=== PATIENT | male | born 2000 | race African-American/Black ===

== ENCOUNTER 2022-03-04 07:48 | Emergency (ER) | payer MEDICAID ==
[~2022-03-04] VITALS: Ht 170.2 cm; Wt 87.0 kg
[2022-03-04] MEDS ORDERED: KETOROLAC 30MG/ML VIAL IM ONE (10:45)
[2022-03-04] MEDS ORDERED: DEXAMETHASONE 4MG/ML 1ML VIAL IM ONE (10:45)
[2022-03-04] MEDS ORDERED: CLINDAMYCIN HCL 150MG CAPSULE PO ONE (10:45)
[2022-03-04] MEDS ORDERED: CLIN-194 MT (10:50)
[2022-03-04] MEDS ORDERED: IBUP-2029 MT (10:50)
[2022-03-04 11:12] VITALS: BP 124/63
== END 2022-03-04 11:39 | disposition home or self-care (01) ==
LOC: ER 07:48
DX: J02.9 Acute pharyngitis, unspecified (principal); J45.909 Unspecified asthma, uncomplicated
CPT/HCPCS: 87070; 87430; 96372; 99284; J1100; J1885